=== PATIENT | male | born 1975 | race Caucasian/White ===

== ENCOUNTER 2021-10-01 13:30 | Emergency (ER) | payer OTHER, SELFPAY ==
[2021-10-01 14:50] VITALS: BP 157/90; PULSE 72; RESP 20; TEMP 36.7; O2SAT 97; BMI 22.6
--- NOTE | 2021-10-01 17:16 | PC.NURSE ---
PT AMB TO EM WITH UNSTEADY GAIT ( HIS BASELINE) PT REPORTS DENTAL PAIN RIGHT LOWER JAW. NO FACIAL SWELLING. AIRWAY PATENT. STARTED 3 WEEKS AGO. HAS APPT WITH DENTIST FRIDAY.
--- NOTE | 2021-10-01 17:26 | ED_ITS ---
HPI - General Adult General Chief complaint: General Medical Stated complaint: mouth pain Time Seen by Provider: 10/01/21 16:37 Source: patient Mode of arrival: ambulatory History of Present Illness HPI narrative: 46-year-old male with no significant past medical history presenting to the ED complaining of right lower dental pain x1 week. Reports pain radiating to right ear and presybeterian, preventing him from sleeping. Admits recently finished a course of Amoxicillin from PCP via telehealth appointment without relief, has dentist appointment on Friday. Denies oral swelling, inability to swallow, dental trauma/recent procedure or fever Onset (ago): day(s) Related Data Previous Rx's Medication Instructions Recorded amoxicillin 875 mg-potassium 1 tab PO BID 7 Days #14 tab 10/01/21 clavulanate 125 mg tablet hydrocodone 5 mg-acetaminophen 325 1 tab PO Q8H PRN 3 Days #5 tab 10/01/21 mg tablet ketorolac 10 mg tablet 10 mg PO TID PRN 5 Days #15 tab 10/01/21 Allergies Allergy/AdvReac Type Severity Reaction Status Date / Time No Known Allergies Allergy Verified 10/01/21 17:18 Review of Systems Review of Systems: Constitutional: No Fever, No Chills ENT/Mouth: No Ear Pain, No Nasal Congestion, No Sinus Pain, No Hoarseness, No sore throat, No Rhinorrhea, No Swallowing Difficulty, +dental pain Cardiovascular: No Chest Pain, No SOB Respiratory: No Cough, No Sputum Gastrointestinal: No Nausea, No Vomiting, No Diarrhea, No Constipation, No Abdominal pain Genitourinary: No Dysuria, No Urinary Frequency, No Flank Pain Musculoskeletal: No joint pain, No Myalgias, No Joint Swelling Skin: No Skin Lesions, No rash Neuro: No Weakness, No Numbness Yes all other systems are reviewed and are negative [facility]LY [facility] Past Medical History Attestation statement: The following information was validated with the patient. Social History Social History Advance Directives: No Advance Directives Information Provided: No Physical Exam ED Vital Signs: Vital Signs - 24 hr 10/01/21 14:50 Temperature 98.1 F Pulse Rate 72 Respiratory Rate 20 Blood Pressure 157/90 H Pulse Oximetry 97 BMI result Body Mass Index 22.6 Const General: cooperative, healthy appearing and no acute distress Orientation/consciousness: patient oriented x3 Limitations: no limitations HENMT Other: No appreciable facial swelling. TMs WNL, mastoids WNL. No appreciable intraor al erythema, fluctuance or induration, No fractured tooth, no dental tenderness Head: Yes normal to inspection and Yes atraumatic Ears: hearing grossly normal bilaterally General nose exam: Normal external nose present Face and sinus: Yes normal facial exam Mouth: Normal oral and palatal mucosa present Teeth and gingiva: fair dentition Throat: Yes posterior oropharynx normal, Yes tonsils normal, Yes uvula midline, No peritonsillar mass and No uvular edema Eyes General: appearance normal, both eyes and all related structures EOM: EOMs intact bilaterally Neck Neck: Yes normal visual inspection, Yes full ROM, Yes no lymphadenopathy, Yes no meningeal signs, Yes supple and No anterior neck swelling Resp Effort & Inspection: normal respiratory effort and no respiratory distress Cardio Rate: regular rate Heart sounds: S1 normal heart sound present and S2 normal heart sound present Skin Rashes: no rashes Wounds: no wounds Neuro General: patient oriented x3, tone normal and no meningeal signs Gait exam (Neuro): Normal gait present Extrem General: Yes normal to inspection Medical Decision Making MDM Narrative Medical decision making narrative: 46-year-old male with no significant past medical history presenting to the ED complaining of right lower dental pain x1 week. On exam VSS, NAD, well appearing, no evidence of dental abscess or intraoral swelling. Stressed importance of Dentistry follow-up Plan: Augmentin, Pain meds Medical Records Medical records reviewed: Yes I reviewed the patient's medical records. Lab Data Lab results reviewed: Yes I reviewed the patient's lab results. Discharge Plan Discharge Clinical Impression: Pain, dental Patient Disposition: Home, Self-Care Instructions: Toothache (ED) Additional Instructions: Augmentin is an antibiotic please take as prescribed. Contorted lack is an anti-inflammatory/pain medication, take with food. Additionally [place] is an opiate pain medication, take only when pain is severe for the next [address], drink alcohol, or operate machinery while taking Please follow-up with her dentist scheduled on Friday. If symptoms persist or worsen, you have oral swelling, fever, inability to swallow please return to the ED Prescriptions: New ketorolac 10 mg tablet 10 mg PO TID PRN (Reason: pain) 5 Days Qty: 15 0RF amoxicillin-pot clavulanate 875-125 mg tablet 1 tab PO BID 7 Days Qty: 14 0RF hydrocodone-acetaminophen 5-325 mg tablet 1 tab PO Q8H PRN (Reason: pain, severe) 3 Days Qty: 5 0RF Referrals: Charlie Martin, CHANTEL [Dentist] - Tahmina Neff DMD [Dentist] -
[2021-10-01] MEDS: Ketorolac Tromethamine 30 MG/ML VIAL IM (17:46)
== END 2021-10-01 17:55 | disposition home or self-care (01) ==
PROVIDERS: Emergency Provider Internal Medicine; PCP Nurse Practitioner Family
DX: K08.89 Other specified disorders of teeth and supporting structures (principal); Z79.899 Other long term (current) drug therapy
CPT/HCPCS: 96372; 99283; 99284; J1885

== ENCOUNTER 2023-04-26 15:49 | Emergency (ER) | payer OTHER, SELFPAY ==
[2023-04-26 16:35] VITALS: BP 135/82; PULSE 90; RESP 16; TEMP 37.3; O2SAT 99; BMI 21.1
--- NOTE | 2023-04-26 16:35 | ED.GENADULT ---
HPI - General Adult General Chief complaint: Ear Problems Stated complaint: blood in right ear Time Seen by Provider: 04/26/23 17:14 Source: patient, RN notes reviewed and old records reviewed Mode of arrival: ambulatory History of Present Illness HPI narrative: 47-year-old male with no significant past medical history presenting to the ED complaining of right ear pain and pink tinged drainage with slight hearing loss/feeling clogged x1 week. Reports putting Q-tips into ear. Also reports subjective fever. Denies sore throat, difficulty/inability to swallow, CP/SOB Onset (ago): week(s) Related Data Previous Rx's Medication Instructions Recorded amoxicillin 875 mg-potassium 1 tab PO BID 7 days #14 tabs 10/01/21 clavulanate 125 mg tablet hydrocodone 5 mg-acetaminophen 325 1 tab PO Q8H PRN pain, severe 3 10/01/21 mg tablet days #5 tabs ketorolac 10 mg tablet 10 mg PO TID PRN pain 5 days #15 10/01/21 tabs ciprofloxacin 0.3 %-dexamethasone 4 drp otic (ear) right BID 7 days 04/26/23 0.1 % ear drops,suspension #7.5 mL Allergies Allergy/AdvReac Type Severity Reaction Status Date / Time No Known Allergies Allergy Verified 04/26/23 16:39 Review of Systems Review of Systems: Constitutional: No Fever, No Chills ENT/Mouth: +Ear Pain, No Nasal Congestion, No sore throat, No Rhinorrhea, No Swallowing Difficulty Cardiovascular: No Chest Pain, No SOB Respiratory: No Cough, No Sputum Gastrointestinal: No Nausea, No Vomiting, No Abdominal pain Musculoskeletal: No joint pain, No Myalgias, No Joint Swelling Skin: No Skin Lesions, No rash Neuro: No Weakness Yes all other systems are reviewed and are negative Constitutional: Constitutional: Reports as per [facility] Past Medical History Attestation statement: The following information was validated with the patient. Source: old records reviewed Social History Advance Directives: No Advance Directives Information Provided: No Physical Exam ED Vital Signs: Vital Signs - 24 hr 04/26/23 16:35 Temperature 99.1 F Pulse Rate 90 Respiratory Rate 16 Blood Pressure 135/82 Pulse Oximetry 99 Oxygen Delivery Method Room Air BMI result Body Mass Index 21.1 Const General: cooperative, healthy appearing and no acute distress Orientation/consciousness: patient oriented x3 Limitations: no limitations HENMT Head: Yes normal to inspection and Yes atraumatic Ears: hearing grossly normal bilaterally, mastoids normal and Abnormal EAC present otic discharge purulent on the right and occluded by discharge on the right General nose exam: Normal external nose present Face and sinus: Yes normal facial exam Mouth: Normal oral and palatal mucosa present, no audible dysphonia and no drooling Throat: Yes posterior oropharynx normal, Yes tonsils normal, Yes uvula midline, No uvula laterally displaced and No uvular edema Eyes General: appearance normal, both eyes and all related structures EOM: EOMs intact bilaterally Neck Neck: Yes normal visual inspection and Yes no meningeal signs Resp Effort & Inspection: normal respiratory effort, no respiratory distress and no stridor Cardio Rate: regular rate Skin Rashes: no rashes Wounds: no wounds Neuro General: patient oriented x3, tone normal and no meningeal signs Cranial nerves: Yes CN's II-XII intact bilaterally Gait exam (Neuro): Normal gait present Extrem General: Yes normal to inspection Course Course Course Narrative: RME:?47 year old male with no significant pmhx presents to the ED today for evaluation of decreased hearing in his right ear, nasal congestion and fever x1 week. Has been putting alcohol and QT tips in the ear. Reports noticing light blood coming from the ear this am. No sick contacts. PE: Right EAC with erythema. ?TM effusion. No perforation. Lungs CTA b/l. Plan: viral serology Full HPI, ROS and PE to be performed by the primary ED provider. Medical Decision Making Medical Decision Making [facility] Narrative: 47-year-old male with no significant past medical history presenting to the ED complaining of right ear pain and pink tinged drainage with slight hearing loss/feeling clogged x1 week. On exam VSS, NAD, nontoxic appearing, physical exam as above with noted all take discharge from right ear. No blood. TM obscured. Mastoids WNL. Oropharynx WNL. concern for otitis externa. Low suspicion for chronic otitis externa, mastoiditis, otitis media Plan: Topical antibiotics., ENT f/u Results discussed with patient including worrisome signs and symptoms and strict return precautions, and when to return to the emergency department. They verbalized understanding and feel safe for discharge at this time. Differential Diagnosis Differential Diagnoses: The differential diagnosis associated with the presentation includes As above Lab Data Labs: Lab Results 04/26/23 Range/Units 16:53 Influenza Type A (PCR) NEGATIVE (Negative) Influenza Type B (PCR) NEGATIVE (Negative) RSV RNA Qual (PCR) NEGATIVE (Negative) SARS-CoV-2 RNA (RT-PCR) NEGATIVE (Negative) External Record Review External record reviewed: Inpatient record, Office record, Outpatient record, Prior outpatient labs, Prior outpatient radiology, Primary care record and Outside ED record Tests considered The following testing was considered but not selected: As above Prescription Management I considered prescription management with: Pain Medication and Antibiotic Discharge Plan Discharge Clinical Impression: Otitis externa Patient Disposition: Home, Self-Care Instructions: Otitis Externa (DC) Additional Instructions: You have an external ear infection. Ciprodex drops are antibiotic drops Please take as prescribed Do not put anything in your ear If symptoms persist or worsen/pain becomes unbearable return to the emergency department You can also follow-up with an ENT specialist Prescriptions: New ciprofloxacin-dexamethasone 0.3-0.1 % drops,suspension 4 drp otic (ear) right BID 7 Days Qty: 7.5 0RF No Action ketorolac 10 mg tablet 10 mg PO TID PRN (Reason: pain) 5 Days Qty: 15 0RF amoxicillin-pot clavulanate 875-125 mg tablet 1 tab PO BID 7 Days Qty: 14 0RF hydrocodone-acetaminophen 5-325 mg tablet 1 tab PO Q8H PRN (Reason: pain, severe) 3 Days Qty: 5 0RF Referrals: Glenn Esposito NP [Primary Care Provider] - 5 days
[2023-04-26 17:40] LABS: Influenza A PCR NEGATIVE (Negative); Influenza B PCR NEGATIVE (Negative); Resp Syncy Virus RNA Qual PCR NEGATIVE (Negative); SARS COV2 PCR INHOUSE NEGATIVE (Negative)
== END 2023-04-26 18:24 | disposition home or self-care (01) ==
PROVIDERS: Physician Assistant Medical; Emergency Provider Emergency Medicine Emergency Medical Services; PCP Nurse Practitioner Family
DX: H60.91 Unspecified otitis externa, right ear (principal); H92.01 Otalgia, right ear; Z20.822 Contact with and (suspected) exposure to COVID-19; Z20.828 Contact with and (suspected) exposure to other viral communicable diseases
CPT/HCPCS: 0241U; 99282; 99283